=== PATIENT | female | born 1990 | race African-American/Black ===

== ENCOUNTER 2016-08-21 01:38 | Emergency (ER) | payer OTHER ==
[~2016-08-21] VITALS: Ht 170.2 cm; Wt 158.8 kg
[~2016-08-21 01:38] MED LIST: AZITHROMYCIN 2250 MG PO; IRON325 PO; MACROBID 100 M100 M1 PO; NAPROSYN500 MG PO; ONDANSETRON HCL4 M2 PO; PRENATAL PO; THERAFLU MULTI1 EACH PO; TRINATE TABLET1 TAB PO; ZOFRAN4 MG PO
[2016-08-21 02:37] LABS: URINE BILIRUBIN NEGATIVE (Negative); URINE BLOOD NEGATIVE (Negative); URINE COLOR YELLOW; URINE GLUCOSE-RANDOM* NEGATIVE (Negative); URINE KETONES TRACE (Negative); URINE LEUKOCYTES-REFLEX 2+ (Negative); URINE PROTEIN (DIPSTICK) TRACE (Negative); URINE SPECIFIC GRAVITY >= 1.030 (1.003-1.035); URINE UROBILINOGEN 0.2 E.U./dl (0.2-1.0)
[2016-08-21 02:58] LABS: ABSOLUTE NEUTROPHILS 2.2 thou/uL (1.4-8.2); BASOPHILS 0.7 % (0.0-2.0); EOSINOPHILS 1.8 % (0.0-3.0); HEMATOCRIT 30.5 % (37.0-47.0); LYMPHOCYTES 43.5 % (24.0-44.0); MCH 24.6 pg (26.0-34.0); MCHC 32.9 % (28.0-37.0); MCV 74.7 fL (80.0-100.0); MONOCYTES 8.4 % (1.0-8.0); PLATELET COUNT 219 thou/uL (150-400); POLYS 45.6 % (36.0-66.0); RBC 4.08 mil/uL (4.20-5.00); WBC 4.9 thou/uL (4.0-11.0)
[2016-08-21 03:02] LABS: MANUAL DIFF NO
[2016-08-21 03:24] LABS: CALCIUM 8.8 mg/dL (8.5-10.1); CREATININE 0.8 mg/dL (0.6-1.3); POTASSIUM 3.8 mmol/L (3.5-5.1)
[2016-08-21 03:26] LABS: SQUAMOUS >10 Many /LPF (0-3)
[2016-08-21 03:35] LABS: CASTS None Seen /LPF (None Seen); CRYSTALS None Seen /LPF (None Seen); URINE RBC 0-2 Rare /HPF (0-2)
[2016-08-21 04:52] VITALS: BP 152/77
== END 2016-08-21 05:12 | disposition home or self-care (01) ==
LOC: ER 01:38
PROVIDERS: Emergency Medicine
DX: O20.0 Threatened abortion (principal); Z3A.01 Less than 8 weeks gestation of pregnancy; Z88.1 Allergy status to other antibiotic agents